=== PATIENT | female | born 1980 | race American Indian/Alaskan Native ===

== ENCOUNTER 2016-09-04 21:24 | Emergency (ER) | payer MEDICAID ==
[2016-09-04] MEDS ORDERED: CATAPRES PO ONE (21:55)
[2016-09-04] MEDS ORDERED: TYLENOL PO ONE (21:58)
[2016-09-04 22:35] LABS: Basophils % (Auto) 0.3 % (0.0-1.8); Eosinophils % (Auto) 4.9 % (0.0-4.3); Hematocrit 37.9 % (30.3-42.9); Hemoglobin 12.2 gm/dl (10.1-14.3); Mean Corpuscular HGB Conc 32 % (30-34); Mean Corpuscular Hemoglobin 29 pg (28-32); Mean Corpuscular Volume 89 fl (79-97); Platelet Count 316 K/mm3 (140-440); Red Blood Count 4.25 M/mm3 (3.65-5.03); Red Cell Distribution Width 14.6 % (13.2-15.2); White Blood Count 10.4 K/mm3 (4.5-11.0)
[2016-09-04 22:53] LABS: BUN/Creatinine Ratio 21.66; Blood Urea Nitrogen 13 mg/dL (7-17); Calcium 9.6 mg/dL (8.4-10.2); Carbon Dioxide 27 mmol/L (22-30); Chloride 101.7 mmol/L (98-107); Glucose 94 mg/dL (65-100); Potassium 4.5 mmol/L (3.6-5.0); Sodium 142 mmol/L (137-145)
[2016-09-04 22:58] LABS: Anion Gap 18 mmol/L
[2016-09-04 23:20] LABS: Bacteria,Urine 1+ /HPF (Negative); Bilirubin,Urine NEG (Negative); Blood,Urine NEG (Negative); Ketones,Urine NEG (Negative); Leukocyte Esterase,Urine LG (Negative); Mucus,Urine 1+ /HPF; Nitrite,Urine NEG (Negative); Urobilinogen,Urine < 2.0 mg/dL (<2.0)
--- NOTE | 2016-09-05 00:39 | XRay Report ---
FINAL REPORT EXAM: XR RIBS UNI W PA CHEST 3 RT HISTORY: ? rib fracture COMPARISON: None available. FINDINGS: Frontal views of the chest and three views of the right ribs were obtained. Heart normal in size. Lungs are clear. No pneumothorax. No step-off deformity of the right ribs. No discrete fracture line. IMPRESSION: Lungs are clear. Right ribs are grossly intact.
[2016-09-05 07:52] VITALS: BP 186/110
[2016-09-05] MEDS ORDERED: TORADOL IM ONE (08:16)
[2016-09-05] MEDS ORDERED: CATAPRES PO ONE (08:18)
--- NOTE | 2016-09-05 08:24 | Emergency Department Report ---
HPI - General Chief Complaint: Chest Pain Time Seen by Provider: 09/05/16 07:43 - HPI HPI: The patient is a 36-year-old female who presents for evaluation of chest pain. The patient reports chest pain for the past 2 days, at the injuring herself attempted to move a piece of furniture out of the bed of her pickup truck. She states that since she has experienced throbbing and sharp pain to the right lower anterior chest wall, and out of 10 in severity, and exacerbated with movement of the chest or right arm. ED Past Medical Hx - Past Medical History Previous Medical History?: Yes Hx Hypertension: Yes Hx Diabetes: Yes Hx Seizures: Yes - Surgical History Past Surgical History?: No - Social History Smoking Status: Never Smoker Substance Use Type: None - Medications Home Medications: Home Medications Medication Instructions Recorded Confirmed Last Taken Type Cyclobenzaprine HCl [Flexeril 5 MG 5 mg PO Q8HR PRN #14 tab 09/05/16 Unknown Rx TAB] Ibuprofen [Motrin] 800 mg PO Q8HR PRN #14 tablet 09/05/16 Unknown Rx ED Review of Systems ROS: Stated complaint: CHEST PAIN Other details as noted in HPI Constitutional: denies: fever ENT: denies: throat or neck pain Respiratory: denies: cough, shortness of breath Cardiovascular: reports chest pain Endocrine: denies unexplained weight loss or gain Gastrointestinal: denies: abdominal pain, nausea Genitourinary: denies: dysuria Musculoskeletal: denies: leg swelling Skin: denies: rash Neurological: denies: headache Hematological/Lymphatic: denies: easy bleeding or easy bruising Psych: denies sadness or hopelessness Physical Exam - Physical Exam Vital Signs: Vital Signs 09/04/16 09/04/16 09/04/16 21:45 21:56 23:16 Temperature 98.2 F 98.3 F Pulse Rate 73 73 64 Respiratory 20 16 Rate Blood Pressure 198/122 198/122 Blood Pressure 188/117 [Left] O2 Sat by Pulse 98 100 Oximetry 09/05/16 09/05/16 02:46 07:43 Temperature 98.2 F 98.4 F Pulse Rate 72 74 Respiratory 20 18 Rate Blood Pressure Blood Pressure 202/127 186/110 [Left] O2 Sat by Pulse 100 100 Oximetry Physical Exam: General: well-nourished, well-developed, no acute distress Head: Normocephalic, atraumatic Eyes: normal sclera Neck: trachea midline, neck supple, No neck stiffness, no cervical adenopathy Respiratory: Breath sounds equal bilaterally, no wheezing, rales, or rhonchi Cardio: S1 and S2 present, no murmurs, rubs, gallops, capillary refill is brisk Abdomen: Normoactive bowel sounds, soft abdomen, no tenderness Chest WALL/Back: tenderness to palpation of the right lower chest wall and intercostal muscles at the anterior axillary line present, there is no warmth, swelling, fluctuance, or crepitus to the chest wall Musc: No pitting edema Skin: No rash Neuro: no facial drooping, normal speech Psych: Normal affect ED Course Vital Signs 09/04/16 09/04/16 09/04/16 21:45 21:56 23:16 Temperature 98.2 F 98.3 F Pulse Rate 73 73 64 Respiratory 20 16 Rate Blood Pressure 198/122 198/122 Blood Pressure 188/117 [Left] O2 Sat by Pulse 98 100 Oximetry 09/05/16 09/05/16 02:46 07:43 Temperature 98.2 F 98.4 F Pulse Rate 72 74 Respiratory 20 18 Rate Blood Pressure Blood Pressure 202/127 186/110 [Left] O2 Sat by Pulse 100 100 Oximetry ED Medical Decision Making - Lab Data Result diagrams: 09/04/16 22:03 09/04/16 22:03 - Medical Decision Making The patient was seen and examined by myself. The patient is placed on a auto parts counter person and continuous pulse ox. On initial evaluation, the patient was found to be in no distress. EKG was negative for findings suggestive of acute cardiac infarct. Labs and imaging are obtained. The patient is given IM dose of Toradol for her pain. Chest x-ray is negative for pneumothorax, focal consolidation, pulmonary vascular congestion, pleural effusion, or other obvious acute cardiopulmonary disease process. Lab results were non-concerning including levels of troponin, WBC, hemoglobin, hematocrit, electrolytes, renal function. The patient was reevaluated and reported that their symptoms were markedly improved. As the patient has a RALPH risk score less than 2, and a well 's score less than 2, the patient is at low risk of ACS or pulmonary emboli etiology of their symptoms. The patient is stable for discharge with outpatient follow-up. The patient is given follow-up and return instructions. The patient expressed understanding and agreed with the plan. The patient is discharged in stable condition. Critical care attestation.: If time is entered above; I have spent that time in minutes in the direct care of this critically ill patient, excluding procedure time. ED Disposition Clinical Impression: Acute chest wall pain, Rib pain on right side, Asymptomatic hypertensive urgency Disposition: DISCHARGED TO HOME OR SELFCARE Is pt being admited?: No Does the pt Need Aspirin: No Condition: Stable Instructions: Thoracic Pain (ED), Musculoskeletal Pain (ED) Referrals: PRIMARY CARE, [Primary Care Provider] - 3-5 Days Time of Disposition: 08:17
== END 2016-09-05 08:56 | disposition home or self-care (01) ==
LOC: ED 21:24
DX: R07.89 Other chest pain (principal); I10 Essential (primary) hypertension; E11.9 Type 2 diabetes mellitus without complications; X58.XXXA Exposure to other specified factors, initial encounter; Y93.9 Activity, unspecified; Y92.9 Unspecified place or not applicable; Y99.9 Unspecified external cause status
CPT/HCPCS: 36415; 71101; 80048; 81001; 81025; 84484; 85025; 93005; 93010; 96372; 99285; J1885